=== PATIENT | female | born 1945 | race Caucasian/White ===

== ENCOUNTER 2016-09-15 14:09 | Emergency (ER) | payer OTHER, MEDICAID ==
[2016-09-15] MEDS ORDERED: MORPHINE SULFATE 4 MG/ML CPJ (NOT FOR IM USE) IV ONE (14:45)
[2016-09-15] MEDS ORDERED: ONDANSETRON HCL 4MG/2ML VIAL IV ONE ×2 (14:45→18:00)
[2016-09-15] MEDS ORDERED: KETAMINE HCL 50 MG/ML 10ML IV ONE (16:00)
[2016-09-15 16:22] LABS: CHLORIDE 106 mEq/L (98-107)
[2016-09-15 16:23] LABS: INDEX HEMOLYSI 1 (1-3); INDEX ICTERIC 1 (1-4); INDEX LIPEMIC 1 (1-3)
[2016-09-15 16:25] LABS: PROTHROMBIN TIME 10.4 sec
[2016-09-15 16:26] LABS: CALCIUM 8.9 mg/dL (8.5-10.1)
[2016-09-15 16:27] LABS: ALBUMIN 3.3 g/dL (3.4-5.0); ANION GAP 14; BASOPHILS % 0.3 % (0.0-2.0); CARBON DIOXIDE 25 mEq/L (21-32); EOSINOPHILS % 0.7 % (0.0-5.0); HEMATOCRIT. 40.7 % (36.0-48.0); HEMOGLOBIN. 13.3 g/dL (12.0-16.0); LYMPHOCYTES % 17.1 % (20.0-50.0); MEAN CORPUSCULAR HEMOGLOBIN 30.6 pg (28.0-32.0); MEAN CORPUSCULAR HGB CONC 32.7 g/dL (31.0-37.0); MEAN CORPUSCULAR VOLUME 93.6 fL (81.0-99.0); MONOCYTES % 5.1 % (2.0-8.0); NEUTROPHILS % 76.8 % (40.0-76.0); PLATELET 168 x1000/uL (130-400); RED BLOOD CELL COUNT 4.35 mill/uL (4.2-5.4); RED CELL DISTRIBUTION WIDTH 15.1 % (11.6-14.6); UREA NITROGEN BLOOD 23 mg/dL (7-21); WHITE BLOOD COUNT 15.7 x1000/uL (4.5-11.0)
[2016-09-15 16:31] LABS: ALANINE AMINOTRANSFERASE 25 IU/L (13-61); eGFR > 60 mL/min (>60)
[2016-09-15 19:39] VITALS: BP 126/68
== END 2016-09-15 19:39 | disposition home or self-care (01) ==
LOC: ER 14:26
DX: S43.005A Unspecified dislocation of left shoulder joint, initial encounter (principal); I10 Essential (primary) hypertension; W01.0XXA Fall on same level from slipping, tripping and stumbling without subsequent striking against object, initial encounter; Y93.89 Activity, other specified; Y92.89 Other specified places as the place of occurrence of the external cause; Y99.8 Other external cause status; R51 Headache
CPT/HCPCS: 23650; 36415; 70450; 71010; 72125; 72170; 73030; 73060; 73070; 80053; 85025; 85610; 85730; 93005; 96374; 96375; 96376; 99152; 99285; J2270; J2405; J3490